=== PATIENT | male | born 1960 | race Caucasian/White ===

== ENCOUNTER 2018-06-25 08:17 | Emergency (ER) | payer OTHER ==
--- NOTE | 2018-06-25 08:33 | PDOC ---
History of Present Illness - General Chief Complaint: Injury Stated Complaint: INJURY TO RIGHT ARM Time Seen by Provider: 06/25/18 08:20 History Source: Patient Exam Limitations: No Limitations - History of Present Illness Initial Comments: 06/25/18 08:35 58y M hx of GERD presents with complaint of R shoulder pain after falling forward while horsing around with his son. Pt notse when he went down his head struck a rail and fell on an outstreched R arm. pt denies any numbness/tingling , headache, double bvision, neck pain, back pain, or other extremity pain. No prior symptmos prior to falling No LOC, n/v, headache, vision changes. PMD: Dr. Rose ROS: HEENT: no reported vision changes Respiratory: no reported cough, sob, hemoptysis Cardiac: no reported chest pain Abd/GI: no reported abd pain, nausea, vomiting Musculskelatal - +R shoulder pain no reported back pain, joint swelling skin - no reported bruising, erythema, rash neurological: no reported headache, numbness, focal weakness, tingling, ataxia hematologic: no reported easy bruising, easy bleeding Past History - Past Medical History Allergies/Adverse Reactions: Allergies Allergy/AdvReac Type Severity Reaction Status Date / Time No Known Allergies Allergy Verified 10/19/13 14:23 Home Medications: Ambulatory Orders Omeprazole [Prilosec] 20 mg PO DAILY 10/19/13 GI Disorders: Yes (ACID REFLUX) - Suicide/Smoking/Psychosocial Hx Smoking History: Never smoked Hx Alcohol Use: Yes (SOCIAL) *Physical Exam - Physical Exam Comments: 06/25/18 08:49 GENERAL: The patient is awake, alert, and fully oriented, Nontoxic - in no acute distress. HEAD: Normocephalic, atraumatic without focal ttp to scalp/face/nose EYES: extraocular movements intact, sclera anicteric, conjunctiva clear, PERRL ENT: Normal voice, Moist mucous membranes. NECK: Normal range of motion, supple ABDOMEN: Soft, nontender No guarding, no rebound. No CVA tenderness NEUROLOGICAL: No facial assymetry, Normal speech, sensation symmetric in upper extremities (radial/ulnar/axillary distribution) PSYCH: Normal mood, normal affect. SKIN: Warm, Dry, normal turgor, Back: No midline tenderness to the cervical, thoracic or lumbar spine Musculoskelatal: FROM of L shoulders, elbows, wrist. FROM of hips, knees, ankles - No signs of ecchymosis, erythema, or crepitus noted on palpation extremities, chest wall, clavicals, ribs, back. No significant pain with passive ROM of R shoulder, +pain with active ROM of R shoulder. Moderate Sedation - Pre-Procedure Assessment # 1 Joint Reduction Is this a Moderate (Conscious) sedation patient?: Yes Med/Surg Hx & PE performed: Yes Vital Signs: Vital Signs Temp Pulse Resp BP Pulse Ox 98.3 F 79 20 164/136 H 96 06/25/18 08:18 06/25/18 09:21 06/25/18 09:21 06/25/18 09:21 06/25/18 09:21 Does the patient have a history of Obstructive Sleep Apnea: Yes Prior complications with sedation/analgesia: No NPO since (date): 06/25/18 NPO since (time): 04:00 (coffee, last meal last night) Mallampati Score: II ASA Physical Status: Class II Consent obtained: Written Time out called (time): 09:48 Items checked for time out procedure: All work stopped, Patient identified using 2 identifiers, Procedure to be performed verified & agreed, Allergies noted, Consent read, Site marked & verified (if indicated), ED physician/TELEPHONE CLERKS SUPERVISOR/PA/ Resident identified, Patient position verified, All active procedure participants present from the beginning Sedation agent: Other (ketamine / propofol (40-20-20mg)) # 2 Joint Reduction Is this a Moderate (Conscious) sedation patient?: Yes Med/Surg Hx & PE performed: Yes Vital Signs: Vital Signs Temp Pulse Resp BP Pulse Ox 98.3 F 79 20 164/136 H 96 06/25/18 08:18 06/25/18 09:21 06/25/18 09:21 06/25/18 09:21 06/25/18 09:21 Does the patient have a history of Obstructive Sleep Apnea: Yes Prior complications with sedation/analgesia: No NPO since (date): 06/25/18 NPO since (time): 04:00 Mallampati Score: II ASA Physical Status: Class II Consent obtained: Written Time out called (time): 10:25 Items checked for time out procedure: All work stopped, Patient identified using 2 identifiers, Procedure to be performed verified & agreed, Allergies noted, Consent read, Site marked & verified (if indicated), ED physician/TELEPHONE CLERKS SUPERVISOR/PA/ Resident identified, Patient position verified, All active procedure participants present from the beginning Sedation agent: Other (ketamine /propofol (40-20-20mg)) - Post Procedure Assessment Tolerated procedure well: Yes Was a reversal agent used?: No Patient evaluation: Awake, alert and oriented Procedures - Consent Consent obtained: Written - Joint Reduction Right Joint Reduction Site: right: Anterior Dislocation Pre-Procedure NV Exam: normal Conscious Sedation: Yes Amt. of medication administered: 4mg Procedure: Other (external rotation / milch) Post-Procedure NV Exam: normal Complications: No (required 2 attempt) Post Joint Reduction Film: joint reduced Splint: No Immobilized: No Progress: 06/25/18 11:06 required 2 attempts at reduction. INitial attempt using external rotation and milch. cluck felt with improvement o fpain, however pain returned during xray. repeat attempt was successful using external rotation/milsch. n/v intact post procedure Heart Score/ECG Review - ECG Impressions Comment:: 06/25/18 12:52 Twelve-lead EKG was performed and reviewed by me. There is normal sinus rhythm with a normal rate. Rate of [address] changes suggestive of acute ischemia Medical Decision Making - Medical Decision Making 06/25/18 08:49 ddx - strain vs dislocation vs fx will obtain xray will reasess pain medication 06/25/18 09:13 xray cw anterior dislocation wo signs of fracture will place IV and sedate 06/25/18 09:43 asa class 2 and mallimpati score 2 will use ketofol 06/25/18 11:26 on portable post reduction film shows that shoulder is reduced. on Y view, there is poor penetration and suggestion of defomrity of humeral head - will obtain formal shoulder to further evaluate to r/o fx 06/25/18 12:16 repeat formal xray reveals no signs of fracture pt feeling improved will dc the pt with ortho follow up return precautions were dsicussed pt placed in sling I discussed the physical exam findings, ancillary test results and final diagnoses with the patient. I answered all of the patient's questions. The patient was satisfied with the care received and felt comfortable with the discharge plan and treatment plan. The patient will call their primary care physician within 24 hours to arrange follow-up and will return to the Emergency Department with any new, persistent or worsening symptoms. *DC/Admit/Observation/Transfer Diagnosis at time of Disposition: Dislocation, shoulder, anterior Qualifiers: Encounter type: initial encounter Laterality: right Qualified Code(s): S43.014A - Anterior dislocation of right humerus, initial encounter - Discharge Dispostion Disposition: HOME Condition at time of disposition: Improved Decision to Admit order: No - Referrals Referrals: Vernon Rose MD [Primary Care Provider] - Fernando Lala MD [Staff Physician] - Amauri Sullivan DO [Staff Physician] - - Patient Instructions Printed Discharge Instructions: DI for Shoulder Dislocation, DI for Moderate Sedation Additional Instructions: Return to the emergency department immediately with ANY new, persistent or worsening symptoms including worsneing pain, numbness/tingling/weakness or other concerns. Keep the sling on for comfort. Take tylenol or motrin as needed for pain. You MUST call and follow up with an orthopedic surgeon within 4-5 days for further evaluation of your symptoms. Results were discussed with you. Please make sure your doctor reviews the results of your emergency evaluation. Print Language: LIBYAN - Post Discharge Activity Forms/Work/School Notes: Back to Work
[2018-06-25 08:34] VITALS: TEMP 98.3; BMI 44.6
[2018-06-25] MEDS ORDERED: PROPOFOL 200 MG/20 ML VIAL IVPUSH ONE ×3 (09:36→10:40)
[2018-06-25] MEDS ORDERED: KETAMINE HCL 200 MG/20 ML VIAL IVPUSH ONE ×3 (09:36→10:41)
[2018-06-25] MEDS ORDERED: KETAMINE HCL 200 MG/20 ML VIAL ONE (09:43)
[2018-06-25] MEDS ORDERED: PROPOFOL 20 ML ONE (09:43)
[2018-06-25] MEDS ORDERED: morphine SULFATE 4 MG/ML VIAL ONE (10:19)
[2018-06-25] MEDS ORDERED: morphine CARPU-JECT 4 MG/1 ML DISP.SYRIN IVPUSH ONE (10:23)
[2018-06-25 13:55] VITALS: BP 134/73; PULSE 92
--- NOTE | 2018-06-26 09:45 | EKG ---
Test Reason : Blood Pressure : / mmHG Vent. Rate : 096 BPM Atrial Rate : 096 BPM P-R Int : 000 ms QRS Dur : 080 ms QT Int : 358 ms P-R-T Axes : 000 147 029 degrees QTc Int : 452 ms POOR DATA QUALITY, INTERPRETATION MAY BE ADVERSELY AFFECTED Probably NSR WITH OCCASIONAL PREMATURE VENTRICULAR COMPLEXES RIGHT AXIS DEVIATION PULMONARY DISEASE PATTERN ABNORMAL ECG NO PREVIOUS ECGS AVAILABLE non diagnostic quality EKG Confirmed by GENET ACUÑA, JORDAN ([id number]) on 06/26/2018 9:44:48 AM Referred By: WOO Confirmed By:JORDAN DE LEÓN MD
== END 2018-06-25 12:41 | disposition home or self-care (01) ==
LOC: FER 08:17
PROC: 0RSJXZZ Reposition Right Shoulder Joint, External Approach (ICD-10-PCS; principal; 2018-06-25)
DX: S43.014A Anterior dislocation of right humerus, initial encounter (principal); W18.39XA Other fall on same level, initial encounter; Y93.89 Activity, other specified; Y92.89 Other specified places as the place of occurrence of the external cause
CPT/HCPCS: 73030-TC-RT-FY; 93005; 99283-25